=== PATIENT | male | born 1965 | race Caucasian/White ===

== ENCOUNTER 2023-04-24 11:38 | Emergency (ER) | payer MEDICARE ==
[2023-04-24] VITALS (17 sets, daily range): BP systolic 150–181; BP diastolic 79–96
[~2023-04-24] VITALS: Ht 182.9 cm; Wt 98.0 kg
[~2023-04-24 11:38] MED LIST: ALEVE220 M2 PO; ASPIRIN ADULT L81 M2; DEXEDRINE15 MG PO; LORTAB 10-325 M1 TAB PO; MULTIVITAMI9 PO; PENICILLN VK500 MG PO; PERCOCET 5/321 COMBO PO; TRAMADOL HCL50 MG PO
[2023-04-24] MEDS ORDERED: LORTAB 7.57.5 MG PO ×2 (16:05→16:12)
[2023-04-24] MEDS ORDERED: NAPROXEN500 MG PO ×2 (16:05→16:12)
[2023-04-24] MEDS ORDERED: PREDNISONE10 MG PO ×2 (16:05→16:12)
[2023-04-24] MEDS ORDERED: METHOCARBAMOL500 MG PO ×2 (16:05→16:12)
== END 2023-04-24 16:26 | disposition home or self-care (01) ==
LOC: ED 11:38
DX: M47.26 Other spondylosis with radiculopathy, lumbar region (principal); S40.021A Contusion of right upper arm, initial encounter; W17.89XA Other fall from one level to another, initial encounter

== ENCOUNTER 2024-10-14 13:15 | Emergency (ER) | payer MEDICARE ==
[~2024-10-14] VITALS: Ht 182.9 cm; Wt 97.0 kg
[~2024-10-14 13:15] MED LIST changes: +LORTAB 7.57.5 MG PO; +METHOCARBAMOL500 MG PO; +NAPROXEN500 MG PO; +PREDNISONE10 MG PO
[2024-10-14 13:22] VITALS: BP 181/87
[2024-10-14 13:30] VITALS: BP 147/87
[2024-10-14] MEDS ORDERED: Diph, Acellular Pertussis, Tet 0.5 ML/VIAL (Tdap) SDV IM ONE (13:30)
[2024-10-14] MEDS ORDERED: NEOMYCIN-BACITRACIN-POLYMYXIN 0.5 GM/PAK PAK TOP ONE (13:55)
[2024-10-14 14:11] VITALS: BP 147/87
== END 2024-10-14 14:20 | disposition home or self-care (01) ==
LOC: ED 13:15
DX: S50.812A Abrasion of left forearm, initial encounter (principal); F17.200 Nicotine dependence, unspecified, uncomplicated; W20.8XXA Other cause of strike by thrown, projected or falling object, initial encounter
CPT/HCPCS: 90715